=== PATIENT | female | born 1985 | race Caucasian/White ===

== ENCOUNTER 2020-03-23 15:08 | Emergency (ER) | payer BC, SELFPAY ==
--- NOTE | ~2020-03-23 | XR_ITS ---
EXAMINATION: XR hip RT min 3V w AP pelvis DATE: 03/23/2020 16:36 INDICATION: Right hip pain and tingling. [place] it pop out of place TECHNIQUE: Anteroposterior view of the pelvis and anteroposterior, frog leg and cross-table lateral v iews of the right hip were obtained. COMPARISON: None. FINDINGS: Alignment is normal. No fracture or suspected avascular necrosis. Mild right hip osteoarthritis with mild posterior joint space narrowing. There are few scattered bone islands in the pelvis, the largest in the supra-acetabular region which can be seen on the mass spec topogram first lumbar spine CT dated IMPRESSION: 1. Mild right hip osteoarthritis. No acute osseous abnormality. Reviewed, dictated and finalized at location A.
[2020-03-23 15:10] VITALS: BP 130/101; PULSE 85; RESP 15; TEMP 37.2; O2SAT 100
[2020-03-23] MEDS: IBUPROFEN 600 MG TABLET PO (16:02)
[2020-03-23 16:03] VITALS: BP 119/69; PULSE 69; RESP 18; TEMP 36.6; O2SAT 100
[2020-03-23] MEDS: diazePAM 5 MG TABLET PO (16:03)
--- NOTE | 2020-03-23 16:03 | PC.NURSE ---
Patient to xray at this time.
--- NOTE | 2020-03-23 17:17 | ED.GENADULT ---
HPI - General Adult General Chief complaint: Extremity Injury, Lower Stated complaint: right leg injury Time Seen by Provider: 03/23/20 15:09 Source: patient and family Mode of arrival: ambulatory Limitations: no limitations History of Present Illness HPI narrative: Patient is a 34-year-old female who presents to emergency department for evaluation of right hip groin pain that began while getting up today noting aching pain worse with activity and movement patient notes that she felt a pop and the pain male radiates down the leg. Patient denies other injuries or complaints. Patient on arrival in the room in no distress has not taken anything for symptom Related Data Allergies Allergy/AdvReac Type Severity Reaction Status Date / Time Cephalosporins Allergy Mild HIVES Verified 03/23/20 16:04 coconut Allergy Swelling Verified 03/23/20 16:04 Review of Systems Review of Systems: All systems reviewed & are unremarkable except as noted in HPI and below PMFSH Social History Social History (Updated 03/23/20 @ 17:21 by Brad Sullivan PA-C) Smoking status: Current every day smoker Exam Narrative: Exam Narrative: GENERAL: Well-appearing, well-nourished, and in no acute distress. HEAD: Normocephalic, atraumatic. EYES: PERRLA and EOMI. ENT: Nares clear, no rhinorrhea or epistaxis. Mucous membranes moist. EXTREMITIES: Normal range of motion. No edema. Tenderness of the right hip no deformity noted SKIN: Warm, dry, no rash. NEURO: No focal deficits. Alert and oriented x3. Cranial nerves II through XII grossly intact PSYCH: Normal mood and affect. Course Course Emergency Course: Patient in the room at this time aware of case findings treatment plan and diagnosis Vital Signs Vital signs: Vital Signs Temperature 99 F 03/23/20 15:10 Pulse Rate 85 03/23/20 15:10 Respiratory Rate 15 03/23/20 15:10 Blood Pressure 130/101 H 03/23/20 15:10 Pulse Oximetry 100 03/23/20 15:10 Temperature 97.8 F 03/23/20 16:03 Pulse Rate 69 03/23/20 16:03 Respiratory Rate 18 03/23/20 16:03 Blood Pressure 119/69 03/23/20 16:03 Pulse Oximetry 100 03/23/20 16:03 Medical Decision Making MDM Narrative Medical decision making narrative: Patients injury or pain is consistent with musculoskeletal etiology. No signs of neurological or vascular compromise on exam. Compartments and tisues are soft without signs of compartment syndrome. Pain is felt appropriate for further evaluation on an outpatient basis. Vital Signs Vital Signs: Vital Signs Temperature 99 F 03/23/20 15:10 Pulse Rate 85 03/23/20 15:10 Respiratory Rate 15 03/23/20 15:10 Blood Pressure 130/101 H 03/23/20 15:10 Pulse Oximetry 100 03/23/20 15:10 Temperature 97.8 F 03/23/20 16:03 Pulse Rate 69 03/23/20 16:03 Respiratory Rate 18 03/23/20 16:03 Blood Pressure 119/69 03/23/20 16:03 Pulse Oximetry 100 03/23/20 16:03 Imaging Data Radiologist's impression: ITS Impressions Hip/Pelvis X-Ray 03/23/20 16:43 IMPRESSION: 1. Mild right hip osteoarthritis. No acute osseous abnormality. Discharge Plan Discharge Clinical Impression: Acute pain of right hip Patient Disposition: Home, Self-Care Condition: Stable Instructions: Antibiotic Form, Leg Pain (ED) Additional Instructions: Use crutches with limited in the next 7 days weight on the affected leg until able to bear weight without pain. Ice and elevate extremity. Pain medication as needed and directed. Follow up with your doctor for further care. Return if symptoms worsen or concerns or any increase in redness swelling pain or fever over 100.5 or any loss of feeling or function in the extremity Prescriptions: New cyclobenzaprine 10 mg tablet 10 mg PO TID PRN (Reason: muscle spasm) Qty: 7 RF: 0 naproxen 500 mg tablet 500 mg PO BID PRN (Reason: pain) Qty: 7 RF: 0 Follow-up/Referrals: PHYSICIAN,[facility] [Primary Care Provider]
[2020-03-23 18:32] VITALS: BP 129/89; PULSE 79; RESP 20; TEMP 36.8; O2SAT 100
== END 2020-03-23 17:55 | disposition home or self-care (01) ==
PROVIDERS: Emergency Provider Emergency Medicine
DX: M25.551 Pain in right hip (principal); F17.200 Nicotine dependence, unspecified, uncomplicated
CPT/HCPCS: 73502; 99283; A9270